=== PATIENT | male | born 1960 | race Caucasian/White ===

== ENCOUNTER → 2021-04-21 | Outpatient (CLI) | payer BC | END | disposition home or self-care (01) | CPT/HCPCS: 74177; Q9967 ==

== ENCOUNTER → 2023-12-02 | Outpatient (CLI) | payer BC ==
--- NOTE | 2023-12-02 15:46 | MR ---
EXAMINATION TYPE: MR lumbar spine wo con DATE OF EXAM: 12/02/2023 COMPARISON: None HISTORY: 63-year-old male M54.50, unspecified Low back pain, scoliosis TECHNIQUE: Multiplanar, multisequence images of the lumbar spine were acquired without IV contrast. FINDINGS: There is a levoconvex scoliosis centered along the thoracolumbar junction with some mild edematous Mo dic type I endplate change towards the right side of concavity at L1-L2 and to a lesser extent at L2- L3. Moderate multilevel degenerative disc disease with desiccated, narrowed, and bulging discs. Ligamentum flavum thickening and hypertrophic facet arthropathy is present throughout. Disc bulges and ligamentum flavum thickening also present within the visualized lower lumbar spine. T his impresses on the ventral thecal sac and even abuts the ventral cord at the levels causing overall mild spinal canal stenosis. Conus medullaris is normal. Trace grade 1 anterolisthesis L4-L5. There is grade 1 retrolisthesis L1-L2. Otherwise, alignment is m aintained. Bulging disks impress on the ventral thecal sac at multiple levels but do not contact any significant spinal canal stenosis. On the right, changes both in moderate neural foraminal stenosis at L3-L4 and mild at multiple additi onal levels. On the left, changes result in moderate neural foraminal stenosis at T11-T12, T12-L1, and L5-S1. No suspicious bone marrow replacement. IMPRESSION: 1. Levoconvex scoliosis centered along the thoracolumbar junction. There is moderate multilevel degen erative disc disease and edematous Modic type I endplate change towards the right side of concavity a t L1-L2 and L2-L3. 2. Multilevel facet arthropathy and ligamentum flavum thickening. Degenerative trace grade 1 spondylo listhesis L1-L2 and L4-L5. 3. Bulging disks impress on the ventral thecal sac at multiple levels. Changes also cause mild narrow ing of the spinal canal in the visualized lower thoracic spine. No significant spinal canal stenosis. 4. Moderate right-sided neural foraminal stenosis at L3-L4 and on the left at T11-T12, T12-L1, and L5 -S1.
== END | disposition home or self-care (01) ==
LOC: RADMRIMAIN 12:56
PROVIDERS: ATTEND Orthopaedic Surgery
DX: M51.36 Other intervertebral disc degeneration, lumbar region (principal); M47.816 Spondylosis without myelopathy or radiculopathy, lumbar region; M43.16 Spondylolisthesis, lumbar region; M51.26 Other intervertebral disc displacement, lumbar region; M41.85 Other forms of scoliosis, thoracolumbar region; M99.73 Connective tissue and disc stenosis of intervertebral foramina of lumbar region; M24.28 Disorder of ligament, vertebrae
CPT/HCPCS: 72148